=== PATIENT | male | born 1950 ===

== ENCOUNTER 2021-09-22 13:01 | Inpatient (IN) | payer MEDICARE, OTHER ==
[~2021-09-22] VITALS: Ht 170.2 cm; Wt 73.0 kg
[2021-09-22] MEDS ORDERED: AZITHROMYCIN 500MG/ 250ML 250 ML IV ONE (14:00)
[2021-09-22] MEDS ORDERED: DexAMETHasone SOD PHOS 10MG/1ML VIAL INJ IV ONE (14:00)
[2021-09-22 14:01] LABS: Basophils # (auto) 0 10 ^3/uL (0-0.2); Basophils % (auto) 0.2 % (0.0-2.0); Eosinophils # (auto) 0 10 ^3/uL (0-0.8); Eosinophils % (auto) 0.2 % (0.0-7.0); Hematocrit 43.3 % (41.0-53.0); Hemoglobin 14.7 g/dL (13.5-17.5); Lymphocytes # (auto) 0.6 10 ^3/uL (0.4-5.4); Lymphocytes % (auto) 8.7 % (10.0-50.0); Mean Corpuscular Hemoglobin 30.6 pg (28.0-32.0); Mean Corpuscular Hgb Conc. 33.9 g/dL (32.0-36.0); Mean Corpuscular Volume 90.3 fL (80.0-100.0); Monocytes # (auto) 0.2 10 ^3/uL (0-1.3); Monocytes % (auto) 3.2 % (0.0-12.0); Neutrophils # (auto) 5.9 10 ^3/uL (1.6-8.6); Neutrophils % (auto) 87.7 % (37.0-80.0); Nucleated Red Blood Cells % 0.2 %; Red Blood Cells 4.79 10^6/uL (4.5-5.90); Red Cell Distribution Width 13.3 % (11.8-14.3); White Blood Cell 6.8 10^3/uL (4.4-10.8)
[2021-09-22 14:10] VITALS: BP 151/89
[2021-09-22 14:18] LABS: Albumin 2.4 g/dL (3.4-5.0); Calcium 8.9 mg/dL (8.5-10.1); Magnesium 2.8 mg/dL (1.6-2.6); Potassium 3.7 mmol/L (3.5-5.1)
[2021-09-22 14:28] LABS: BUN/Creatinine Ratio 36.2; Bilirubin, Total 0.8 mg/dL (0.2-1.0); CRP High Sensitivity 11.4 mg/dL (< 0.3); Total Protein 7.4 g/dL (6.4-8.2)
[2021-09-22] MEDS ORDERED: MORPHINE SULFATE INJECTION 2 MG/ML SYRG IV PRN ×3 (16:30→16:45)
[2021-09-22] MEDS ORDERED: NITROGLYCERIN 0.4 MG SL TAB SL PRN ×2 (16:30→16:45)
[2021-09-22] MEDS ORDERED: REMDESIVIR PER PHARMACY 0 ML IV SCH (16:45)
[2021-09-22] MEDS ORDERED: ACETAMINOPHEN 500 MG TAB PO PRN (16:45)
[2021-09-22] MEDS ORDERED: DOCUSATE SOD 100 MG CAP PO PRN (16:45)
[2021-09-22] MEDS ORDERED: ALUM & MAG HYDROX-SIMETH LIQ(MAALOX) 30 ML PO PRN (16:45)
[2021-09-22] MEDS ORDERED: ONDANSETRON HCL 4 MG/2 ML VIAL IV PRN (16:45)
[2021-09-22] MEDS ORDERED: ENOXAPARIN SOD 100 MG/1 ML SYRINGE SC ONE (16:45)
[2021-09-22] MEDS ORDERED: ALBUMIN 25% 100 ML IV SCH ×2 (17:00→18:00)
[2021-09-22] MEDS ORDERED: ALBUMIN 25% 100 ML IV ONE (17:00)
[2021-09-22] MEDS ORDERED: hydrALAZINE HCL 20 MG/ML VL IV PRN (17:00)
[2021-09-22] MEDS ORDERED: FAMOTIDINE (10MG/ML) 2ML VL IV ONE (17:00)
[2021-09-22] MEDS ORDERED: IOHEXOL 350 MG/ML 100ML IJ ONE (17:42)
[2021-09-22] MEDS: FUROSEMIDE 20 MG/2 ML VIAL IV SCH (18:25)
[2021-09-22 20:00] VITALS: BP 121/78
[2021-09-22] MEDS ORDERED: REMDESIVIR 200 MG in NS 210ml LOADING DOSE ADULT IV ONE (20:00)
[2021-09-22 20:06] VITALS: BP 121/78
[2021-09-22 20:21] VITALS: BP 138/76
[2021-09-22 21:06] VITALS: BP 128/75
[2021-09-22] MEDS ORDERED: METO25TA5 PO (21:20)
[2021-09-22] MEDS ORDERED: HYDR-4623 PO (21:20)
[2021-09-22] MEDS ORDERED: LISI-716 PO (21:20)
[2021-09-22] MEDS ORDERED: ASPI-543 PO (21:20)
[2021-09-22 22:00] VITALS: BP 128/75
[2021-09-22] MEDS: BUDESONIDE (INHALATION) 180 MCG IH IN SCH (22:00)
[2021-09-22] MEDS: POTASSIUM CHL 20 Meq TABLET PO SCH (22:13)
[2021-09-22] MEDS: ATORVASTATIN 20 MG TAB PO SCH (22:14)
[2021-09-22] MEDS: CARVEDILOL 3.125 MG TAB PO SCH (22:14)
[2021-09-22] MEDS: FAMOTIDINE (10MG/ML) 2ML VL IV SCH (22:15)
[2021-09-22] MEDS: DOXYCYCLINE 100MG/250ML 250 ML IV SCH (22:15)
[2021-09-22] MEDS: ENOXAPARIN SOD 80 MG/0.8ML SYRINGE SC SCH (22:15)
[2021-09-23 01:10] LABS: Urine Bacteria NONE SEEN /hpf (None Seen); Urine Blood 2+ /uL (Negative); Urine Specific Gravity 1.049 (1.001-1.035); Urine WBC 2 /hpf (0 - 3)
[2021-09-23 01:12] LABS: Alcohol, Urine < 3.0 mg/dL (0-10); Amphetamine Screen, Urine NEGATIVE (NEGATIVE); Barbiturate Scree,Urine NEGATIVE (NEGATIVE); Benzodiazephine Screen, Urine NEGATIVE (NEGATIVE); Cannabinoid Screen, Urine NEGATIVE (NEGATIVE); Cocaine Screen, Urine NEGATIVE (NEGATIVE); Opiate Scree,Urine POSITIVE (NEGATIVE); Phencyclidine Screen, Urine NEGATIVE (NEGATIVE)
[2021-09-23 05:00] VITALS: BP 119/76
[2021-09-23] MEDS: FUROSEMIDE 20 MG/2 ML VIAL IV SCH ×2 (06:26→16:33)
[2021-09-23] MEDS: ALBUTEROL SULF HFA 90MCG INH 200DOSE IN PRN ×2 (06:50→20:01)
[2021-09-23] MEDS: BUDESONIDE (INHALATION) 180 MCG IH IN SCH ×3 (06:50→20:01)
[2021-09-23 07:13] LABS: Basophils # (auto) 0 10 ^3/uL (0-0.2); Basophils % (auto) 0.1 % (0.0-2.0); Eosinophils # (auto) 0 10 ^3/uL (0-0.8); Hematocrit 42.2 % (41.0-53.0); Hemoglobin 14.7 g/dL (13.5-17.5); Lymphocytes # (auto) 0.7 10 ^3/uL (0.4-5.4); Lymphocytes % (auto) 11.3 % (10.0-50.0); Mean Corpuscular Hgb Conc. 34.9 g/dL (32.0-36.0); Mean Corpuscular Volume 88.7 fL (80.0-100.0); Monocytes # (auto) 0.2 10 ^3/uL (0-1.3); Monocytes % (auto) 3.8 % (0.0-12.0); Neutrophils # (auto) 4.9 10 ^3/uL (1.6-8.6); Neutrophils % (auto) 84.8 % (37.0-80.0); Nucleated Red Blood Cells % 0.2 %; Red Blood Cells 4.75 10^6/uL (4.5-5.90); Red Cell Distribution Width 13.2 % (11.8-14.3); White Blood Cell 5.8 10^3/uL (4.4-10.8)
[2021-09-23 07:14] LABS: INR 1.06 (0.9-1.15); Partial Thromboplastin Time 34.1 sec (23.6-33.0)
[2021-09-23 07:16] LABS: Magnesium 2.1 mg/dL (1.6-2.6); Potassium 4.4 mmol/L (3.5-5.1)
[2021-09-23 07:22] LABS: Albumin 2.5 g/dL (3.4-5.0); BUN/Creatinine Ratio 36.2; Bilirubin, Total 0.8 mg/dL (0.2-1.0); Total Protein 6.7 g/dL (6.4-8.2); Uric Acid 5.1 mg/dL (3.5-7.2)
[2021-09-23 09:00] VITALS: BP 106/51
[2021-09-23] MEDS: FAMOTIDINE (10MG/ML) 2ML VL IV SCH (09:52)
[2021-09-23] MEDS: DexAMETHasone SOD PHOS 10MG/1ML VIAL INJ IV SCH (09:52)
[2021-09-23] MEDS: ASPirin 81 mg TAB PO SCH (09:53)
[2021-09-23] MEDS: DOXYCYCLINE 100MG/250ML 250 ML IV SCH ×2 (09:53→21:54)
[2021-09-23] MEDS: CARVEDILOL 3.125 MG TAB PO SCH ×2 (09:54→22:08)
[2021-09-23] MEDS: POTASSIUM CHL 20 Meq TABLET PO SCH ×2 (09:54→22:08)
[2021-09-23] MEDS: LISINOPRIL 5 MG TAB PO SCH (09:55)
[2021-09-23] MEDS: ASCORBIC ACID 1,000 MG TAB PO SCH (09:55)
[2021-09-23] MEDS: CHOLECALCIFEROL (VITD3) 2,000 UNIT CAP/TAB PO SCH (09:55)
[2021-09-23] MEDS: ENOXAPARIN SOD 80 MG/0.8ML SYRINGE SC SCH (09:56)
[2021-09-23] MEDS ORDERED: IVERMECTIN 3 MG TAB PO SCH (10:00)
[2021-09-23 12:59] VITALS: BP 107/62
[2021-09-23] MEDS: REMDESIVIR 100mg 100 MG in SODIUM CHL 0.9% 230 ML IV SCH (14:00)
[2021-09-23 16:38] VITALS: BP 104/54
[2021-09-23 22:00] VITALS: BP 110/65
[2021-09-23] MEDS: ATORVASTATIN 20 MG TAB PO SCH (22:08)
[2021-09-23] MEDS: HYDROcodone-ACET 5/325MG TAB PO PRN (22:09)
[2021-09-23] MEDS: ENOXAPARIN SOD 40 MG/0.4 ML SYRINGE SC SCH (22:09)
[2021-09-23] MEDS: LORazepam 0.5 MG TAB PO PRN (22:09)
[2021-09-24 05:00] VITALS: BP 120/74
[2021-09-24] MEDS: FUROSEMIDE 20 MG/2 ML VIAL IV SCH (05:43)
[2021-09-24] MEDS: HYDROcodone-ACET 5/325MG TAB PO PRN ×3 (05:44→21:49)
[2021-09-24] MEDS: ALBUTEROL SULF HFA 90MCG INH 200DOSE IN PRN ×2 (06:08→20:48)
[2021-09-24] MEDS: BUDESONIDE (INHALATION) 180 MCG IH IN SCH ×2 (06:08→20:48)
[2021-09-24] MEDS: DOXYCYCLINE 100MG/250ML 250 ML IV SCH ×2 (09:04→21:47)
[2021-09-24] MEDS: DexAMETHasone SOD PHOS 10MG/1ML VIAL INJ IV SCH (09:04)
[2021-09-24] MEDS: CARVEDILOL 3.125 MG TAB PO SCH ×2 (09:05→21:48)
[2021-09-24] MEDS: ASPirin 81 mg TAB PO SCH (09:05)
[2021-09-24] MEDS: POTASSIUM CHL 20 Meq TABLET PO SCH ×2 (09:06→21:47)
[2021-09-24] MEDS: ASCORBIC ACID 1,000 MG TAB PO SCH (09:06)
[2021-09-24] MEDS: FAMOTIDINE 20 MG TAB PO SCH (09:06)
[2021-09-24] MEDS: ENOXAPARIN SOD 40 MG/0.4 ML SYRINGE SC SCH ×2 (09:07→21:47)
[2021-09-24] MEDS: CHOLECALCIFEROL (VITD3) 2,000 UNIT CAP/TAB PO SCH (09:07)
[2021-09-24] MEDS: LISINOPRIL 5 MG TAB PO SCH (09:07)
[2021-09-24] MEDS: LORazepam 0.5 MG TAB PO PRN (09:37)
[2021-09-24 10:08] VITALS: BP 98/56
[2021-09-24 12:15] LABS: Albumin 2.4 g/dL (3.4-5.0); Potassium 4.6 mmol/L (3.5-5.1)
[2021-09-24 12:46] LABS: BUN/Creatinine Ratio 40.2; Bilirubin, Total 0.7 mg/dL (0.2-1.0); Calcium 9.3 mg/dL (8.5-10.1); Total Protein 6.8 g/dL (6.4-8.2)
[2021-09-24 13:30] VITALS: BP 91/50
[2021-09-24] MEDS: REMDESIVIR 100mg 100 MG in SODIUM CHL 0.9% 230 ML IV SCH (14:28)
[2021-09-24] MEDS: ERGOCALCIFEROL 50,000 UNIT(1.25MG) CAP PO SCH (16:12)
[2021-09-24 17:00] VITALS: BP 122/62
[2021-09-24] MEDS: ATORVASTATIN 20 MG TAB PO SCH (21:47)
[2021-09-24 22:00] VITALS: BP 104/70
[2021-09-25] MEDS: HYDROcodone-ACET 5/325MG TAB PO PRN ×4 (06:01→21:53)
[2021-09-25 06:29] VITALS: BP 100/62
[2021-09-25] MEDS: ALBUTEROL SULF HFA 90MCG INH 200DOSE IN PRN ×2 (07:12→20:20)
[2021-09-25] MEDS: BUDESONIDE (INHALATION) 180 MCG IH IN SCH ×2 (07:12→20:20)
[2021-09-25 08:14] LABS: Potassium 4.8 mmol/L (3.5-5.1)
[2021-09-25] MEDS: FUROSEMIDE 20 MG/2 ML VIAL IV SCH (08:21)
[2021-09-25] MEDS: DexAMETHasone SOD PHOS 10MG/1ML VIAL INJ IV SCH (08:21)
[2021-09-25] MEDS: DOXYCYCLINE 100MG/250ML 250 ML IV SCH ×2 (08:21→21:51)
[2021-09-25 08:22] LABS: Albumin 2.4 g/dL (3.4-5.0); BUN/Creatinine Ratio 49.5; Bilirubin, Total 0.8 mg/dL (0.2-1.0); Calcium 9.1 mg/dL (8.5-10.1); Total Protein 6.7 g/dL (6.4-8.2)
[2021-09-25] MEDS: ASPirin 81 mg TAB PO SCH (08:22)
[2021-09-25] MEDS: CARVEDILOL 3.125 MG TAB PO SCH ×2 (08:22→21:52)
[2021-09-25] MEDS: ASCORBIC ACID 1,000 MG TAB PO SCH (08:23)
[2021-09-25] MEDS: CHOLECALCIFEROL (VITD3) 2,000 UNIT CAP/TAB PO SCH (08:23)
[2021-09-25] MEDS: POTASSIUM CHL 20 Meq TABLET PO SCH ×2 (08:23→21:52)
[2021-09-25] MEDS: FAMOTIDINE 20 MG TAB PO SCH (08:23)
[2021-09-25] MEDS: LISINOPRIL 5 MG TAB PO SCH (08:24)
[2021-09-25] MEDS: ENOXAPARIN SOD 40 MG/0.4 ML SYRINGE SC SCH ×2 (08:24→21:52)
[2021-09-25 09:00] VITALS: BP 109/71
[2021-09-25 12:41] VITALS: BP 93/56
[2021-09-25] MEDS: REMDESIVIR 100mg 100 MG in SODIUM CHL 0.9% 230 ML IV SCH (15:19)
[2021-09-25 17:00] VITALS: BP 102/68
[2021-09-25] MEDS: LORazepam 0.5 MG TAB PO PRN (17:32)
[2021-09-25 21:21] VITALS: BP 116/72
[2021-09-25] MEDS: ATORVASTATIN 20 MG TAB PO SCH (21:52)
[2021-09-26] VITALS (11 sets, daily range): BP systolic 78–110; BP diastolic 34–68
[2021-09-26] MEDS: HYDROcodone-ACET 5/325MG TAB PO PRN ×5 (03:40→23:10)
[2021-09-26 07:18] LABS: Basophils # (auto) 0 10 ^3/uL (0-0.2); Basophils % (auto) 0.1 % (0.0-2.0); Eosinophils # (auto) 0.1 10 ^3/uL (0-0.8); Eosinophils % (auto) 0.8 % (0.0-7.0); Hematocrit 44.6 % (41.0-53.0); Hemoglobin 15.2 g/dL (13.5-17.5); Lymphocytes # (auto) 0.8 10 ^3/uL (0.4-5.4); Lymphocytes % (auto) 10.1 % (10.0-50.0); Mean Corpuscular Hemoglobin 30.7 pg (28.0-32.0); Mean Corpuscular Hgb Conc. 34.1 g/dL (32.0-36.0); Mean Corpuscular Volume 90.3 fL (80.0-100.0); Monocytes # (auto) 0.2 10 ^3/uL (0-1.3); Monocytes % (auto) 2.3 % (0.0-12.0); Neutrophils # (auto) 6.4 10 ^3/uL (1.6-8.6); Neutrophils % (auto) 86.7 % (37.0-80.0); Nucleated Red Blood Cells % 0.2 %; Red Blood Cells 4.94 10^6/uL (4.5-5.90); Red Cell Distribution Width 13.2 % (11.8-14.3); White Blood Cell 7.4 10^3/uL (4.4-10.8)
[2021-09-26 07:28] LABS: Potassium 4.9 mmol/L (3.5-5.1)
[2021-09-26 07:36] LABS: Albumin 2.4 g/dL (3.4-5.0); Bilirubin, Total 0.9 mg/dL (0.2-1.0); Calcium 8.9 mg/dL (8.5-10.1); Total Protein 6.5 g/dL (6.4-8.2)
[2021-09-26] MEDS: ALBUTEROL SULF HFA 90MCG INH 200DOSE IN PRN (08:57)
[2021-09-26] MEDS: BUDESONIDE (INHALATION) 180 MCG IH IN SCH ×2 (08:57→22:00)
[2021-09-26] MEDS: FUROSEMIDE 20 MG/2 ML VIAL IV SCH ×2 (10:00→10:29)
[2021-09-26] MEDS: POTASSIUM CHL 20 Meq TABLET PO SCH ×3 (10:00→21:50)
[2021-09-26] MEDS: ASCORBIC ACID 1,000 MG TAB PO SCH ×2 (10:00→10:31)
[2021-09-26] MEDS: DexAMETHasone SOD PHOS 10MG/1ML VIAL INJ IV SCH (10:29)
[2021-09-26] MEDS: ASPirin 81 mg TAB PO SCH (10:29)
[2021-09-26] MEDS: FAMOTIDINE 20 MG TAB PO SCH (10:30)
[2021-09-26] MEDS: CARVEDILOL 3.125 MG TAB PO SCH (10:30)
[2021-09-26] MEDS: CHOLECALCIFEROL (VITD3) 2,000 UNIT CAP/TAB PO SCH (10:31)
[2021-09-26] MEDS: LISINOPRIL 5 MG TAB PO SCH (10:31)
[2021-09-26] MEDS: ENOXAPARIN SOD 40 MG/0.4 ML SYRINGE SC SCH ×2 (10:32→21:50)
[2021-09-26] MEDS: levoFLOXacin 500MG 100 ML IV SCH ×2 (10:33→12:41)
[2021-09-26] MEDS: DOXYCYCLINE 100MG/250ML 250 ML IV SCH ×3 (10:33→21:50)
[2021-09-26] MEDS: REMDESIVIR 100mg 100 MG in SODIUM CHL 0.9% 230 ML IV SCH (16:07)
[2021-09-26] MEDS: ATORVASTATIN 20 MG TAB PO SCH (21:50)
[2021-09-27 05:08] VITALS: BP 121/64
[2021-09-27] MEDS: ALBUTEROL SULF HFA 90MCG INH 200DOSE IN PRN ×2 (06:16→21:21)
[2021-09-27] MEDS: BUDESONIDE (INHALATION) 180 MCG IH IN SCH ×2 (06:16→21:21)
[2021-09-27] MEDS: HYDROcodone-ACET 5/325MG TAB PO PRN ×4 (06:49→22:27)
[2021-09-27 07:27] LABS: Basophils # (auto) 0 10 ^3/uL (0-0.2); Basophils % (auto) 0.1 % (0.0-2.0); Eosinophils # (auto) 0.1 10 ^3/uL (0-0.8); Eosinophils % (auto) 0.8 % (0.0-7.0); Hematocrit 43.7 % (41.0-53.0); Hemoglobin 15.3 g/dL (13.5-17.5); Lymphocytes # (auto) 0.9 10 ^3/uL (0.4-5.4); Lymphocytes % (auto) 10.8 % (10.0-50.0); Mean Corpuscular Hemoglobin 31.4 pg (28.0-32.0); Mean Corpuscular Hgb Conc. 35.1 g/dL (32.0-36.0); Mean Corpuscular Volume 89.5 fL (80.0-100.0); Monocytes # (auto) 0.3 10 ^3/uL (0-1.3); Monocytes % (auto) 3.4 % (0.0-12.0); Neutrophils # (auto) 7.1 10 ^3/uL (1.6-8.6); Neutrophils % (auto) 84.9 % (37.0-80.0); Nucleated Red Blood Cells % 0.1 %; Red Blood Cells 4.89 10^6/uL (4.5-5.90); Red Cell Distribution Width 12.8 % (11.8-14.3); White Blood Cell 8.4 10^3/uL (4.4-10.8)
[2021-09-27 07:39] LABS: BUN/Creatinine Ratio 57.5; Calcium 8.9 mg/dL (8.5-10.1); Potassium 5.2 mmol/L (3.5-5.1)
[2021-09-27 09:00] VITALS: BP 115/63
[2021-09-27] MEDS: DexAMETHasone SOD PHOS 10MG/1ML VIAL INJ IV SCH (09:56)
[2021-09-27] MEDS: DOXYCYCLINE 100MG/250ML 250 ML IV SCH (09:57)
[2021-09-27] MEDS: levoFLOXacin 500MG 100 ML IV SCH (09:57)
[2021-09-27] MEDS: FUROSEMIDE 20 MG/2 ML VIAL IV SCH (09:57)
[2021-09-27] MEDS: ENOXAPARIN SOD 40 MG/0.4 ML SYRINGE SC SCH ×2 (09:58→22:18)
[2021-09-27] MEDS: CHOLECALCIFEROL (VITD3) 2,000 UNIT CAP/TAB PO SCH (09:58)
[2021-09-27] MEDS: FAMOTIDINE 20 MG TAB PO SCH (09:58)
[2021-09-27] MEDS: ASCORBIC ACID 1,000 MG TAB PO SCH (09:58)
[2021-09-27] MEDS: ASPirin 81 mg TAB PO SCH (09:58)
[2021-09-27 12:44] VITALS: BP 109/69
[2021-09-27 17:00] VITALS: BP 100/64
[2021-09-27 22:00] VITALS: BP 107/68
[2021-09-27] MEDS: ATORVASTATIN 20 MG TAB PO SCH (22:17)
[2021-09-28] MEDS: HYDROcodone-ACET 5/325MG TAB PO PRN ×4 (03:50→23:22)
[2021-09-28 05:00] VITALS: BP 101/60
[2021-09-28] MEDS: ALBUTEROL SULF HFA 90MCG INH 200DOSE IN PRN ×2 (06:46→21:19)
[2021-09-28] MEDS: BUDESONIDE (INHALATION) 180 MCG IH IN SCH ×2 (06:47→19:20)
[2021-09-28 08:00] VITALS: BP 113/68
[2021-09-28] MEDS: CHOLECALCIFEROL (VITD3) 2,000 UNIT CAP/TAB PO SCH (10:48)
[2021-09-28] MEDS: FAMOTIDINE 20 MG TAB PO SCH (10:48)
[2021-09-28] MEDS: ENOXAPARIN SOD 40 MG/0.4 ML SYRINGE SC SCH ×2 (10:48→23:21)
[2021-09-28] MEDS: ASCORBIC ACID 1,000 MG TAB PO SCH (10:48)
[2021-09-28] MEDS: ASPirin 81 mg TAB PO SCH (10:48)
[2021-09-28] MEDS: DexAMETHasone SOD PHOS 10MG/1ML VIAL INJ IV SCH (10:49)
[2021-09-28] MEDS: AMOXICILLIN/CLAVUL 875 MG TAB PO SCH ×2 (10:53→23:21)
[2021-09-28 12:00] VITALS: BP 113/66
[2021-09-28 16:00] VITALS: BP 125/81
[2021-09-28 22:00] VITALS: BP 92/56
[2021-09-28 22:58] VITALS: BP 92/56
[2021-09-28] MEDS: ATORVASTATIN 20 MG TAB PO SCH (23:21)
[2021-09-29 05:00] VITALS: BP 112/70
[2021-09-29 06:19] LABS: Potassium 4.6 mmol/L (3.5-5.1)
[2021-09-29 06:28] LABS: Calcium 9.6 mg/dL (8.5-10.1)
[2021-09-29] MEDS: ALBUTEROL SULF HFA 90MCG INH 200DOSE IN PRN ×2 (07:09→19:51)
[2021-09-29] MEDS: BUDESONIDE (INHALATION) 180 MCG IH IN SCH ×2 (07:09→19:50)
[2021-09-29 09:00] VITALS: BP 98/57
[2021-09-29] MEDS: AMOXICILLIN/CLAVUL 875 MG TAB PO SCH ×2 (10:00→22:00)
[2021-09-29] MEDS: ASCORBIC ACID 1,000 MG TAB PO SCH (10:12)
[2021-09-29] MEDS: FAMOTIDINE 20 MG TAB PO SCH (10:12)
[2021-09-29] MEDS: CHOLECALCIFEROL (VITD3) 2,000 UNIT CAP/TAB PO SCH (10:12)
[2021-09-29] MEDS: ASPirin 81 mg TAB PO SCH (10:12)
[2021-09-29] MEDS: DexAMETHasone SOD PHOS 10MG/1ML VIAL INJ IV SCH (10:12)
[2021-09-29] MEDS: ENOXAPARIN SOD 40 MG/0.4 ML SYRINGE SC SCH ×2 (10:13→22:06)
[2021-09-29] MEDS ORDERED: DEXTROSE (50%) 50ML SYRG IV SCH (12:00)
[2021-09-29 13:00] VITALS: BP 103/62
[2021-09-29] MEDS: HYDROcodone-ACET 5/325MG TAB PO PRN ×2 (15:24→22:06)
[2021-09-29 16:59] VITALS: BP 104/72
[2021-09-29] MEDS ORDERED: DOCUSATE SOD 100 MG CAP PO ONE (17:45)
[2021-09-29] MEDS ORDERED: PPN PER PHARMACY 0 ML IV SCH (17:45)
[2021-09-29] MEDS ORDERED: LACTULOSE 20Gm/30ML SOLN PO ONE (17:45)
[2021-09-29] MEDS: ACCU-CHEK COMFORT CURVE STRIP VI SCH ×2 (18:00→23:34)
[2021-09-29] MEDS: InsuLIN REG 1unit/0.01ml Soln (100units/ml) SC SCH ×2 (18:00→23:34)
[2021-09-29] MEDS ORDERED: AMINO ACID INFUSION IN D10W 1,000 ML IV NR (20:00)
[2021-09-29 21:18] VITALS: BP 116/78
[2021-09-29] MEDS: ATORVASTATIN 20 MG TAB PO SCH (22:00)
[2021-09-29] MEDS: LACTULOSE 20Gm/30ML SOLN PO SCH (23:27)
[2021-09-30 05:37] VITALS: BP 110/72
[2021-09-30] MEDS: ACCU-CHEK COMFORT CURVE STRIP VI SCH ×3 (05:58→17:37)
[2021-09-30] MEDS: LACTULOSE 20Gm/30ML SOLN PO SCH ×2 (05:58→11:55)
[2021-09-30] MEDS: InsuLIN REG 1unit/0.01ml Soln (100units/ml) SC SCH ×3 (05:59→17:37)
[2021-09-30 06:18] LABS: Albumin 2.2 g/dL (3.4-5.0); Potassium 4.2 mmol/L (3.5-5.1)
[2021-09-30 06:24] LABS: BUN/Creatinine Ratio 48.5; Bilirubin, Total 0.7 mg/dL (0.2-1.0); Magnesium 2.8 mg/dL (1.6-2.6); Pre Albumin 18.2 mg/dL (20.0-40.0); Total Protein 6.5 g/dL (6.4-8.2)
[2021-09-30] MEDS: ALBUTEROL SULF HFA 90MCG INH 200DOSE IN PRN ×2 (07:23→21:35)
[2021-09-30] MEDS: BUDESONIDE (INHALATION) 180 MCG IH IN SCH ×2 (07:23→21:35)
[2021-09-30 08:00] VITALS: BP 115/63
[2021-09-30 09:00] VITALS: BP 112/75
[2021-09-30] MEDS: DOCUSATE SOD 100 MG CAP PO SCH ×2 (10:00→21:24)
[2021-09-30] MEDS: AMOXICILLIN/CLAVUL 875 MG TAB PO SCH ×2 (10:00→21:24)
[2021-09-30] MEDS: ASCORBIC ACID 1,000 MG TAB PO SCH (10:00)
[2021-09-30] MEDS: HYDROcodone-ACET 5/325MG TAB PO PRN ×2 (11:20→18:53)
[2021-09-30] MEDS: DexAMETHasone SOD PHOS 10MG/1ML VIAL INJ IV SCH (11:53)
[2021-09-30] MEDS: ASPirin 81 mg TAB PO SCH (11:54)
[2021-09-30] MEDS: FAMOTIDINE 20 MG TAB PO SCH (11:55)
[2021-09-30] MEDS: ENOXAPARIN SOD 40 MG/0.4 ML SYRINGE SC SCH ×2 (11:55→22:19)
[2021-09-30] MEDS: CHOLECALCIFEROL (VITD3) 2,000 UNIT CAP/TAB PO SCH (11:55)
[2021-09-30 13:00] VITALS: BP 96/55
[2021-09-30 17:00] VITALS: BP 101/69
[2021-09-30] MEDS ORDERED: PPN PER PHARMACY IV NR ×6 (20:00)
[2021-09-30 22:00] VITALS: BP 111/66
[2021-09-30] MEDS: ATORVASTATIN 20 MG TAB PO SCH (22:00)
[2021-10-01] MEDS: ACCU-CHEK COMFORT CURVE STRIP VI SCH ×4 (00:07→16:39)
[2021-10-01] MEDS: InsuLIN REG 1unit/0.01ml Soln (100units/ml) SC SCH ×4 (00:09→16:38)
[2021-10-01] MEDS: HYDROcodone-ACET 5/325MG TAB PO PRN ×4 (00:30→21:03)
[2021-10-01 05:00] VITALS: BP 109/71
[2021-10-01] MEDS: ALBUTEROL SULF HFA 90MCG INH 200DOSE IN PRN ×2 (05:51→20:35)
[2021-10-01] MEDS: BUDESONIDE (INHALATION) 180 MCG IH IN SCH ×2 (05:51→20:35)
[2021-10-01 06:12] LABS: Potassium 4.1 mmol/L (3.5-5.1)
[2021-10-01 06:18] LABS: Albumin 2.2 g/dL (3.4-5.0); BUN/Creatinine Ratio 55.1; Bilirubin, Total 0.7 mg/dL (0.2-1.0); Calcium 8.9 mg/dL (8.5-10.1); Magnesium 2.5 mg/dL (1.6-2.6); Phosphorus 2.5 mg/dL (2.5-4.90); Total Protein 6.4 g/dL (6.4-8.2)
[2021-10-01 08:00] VITALS: BP 129/77
[2021-10-01] MEDS: ASPirin 81 mg TAB PO SCH (08:05)
[2021-10-01] MEDS: FAMOTIDINE 20 MG TAB PO SCH (08:05)
[2021-10-01] MEDS: DexAMETHasone SOD PHOS 10MG/1ML VIAL INJ IV SCH (08:05)
[2021-10-01] MEDS: ASCORBIC ACID 1,000 MG TAB PO SCH (08:06)
[2021-10-01] MEDS: CHOLECALCIFEROL (VITD3) 2,000 UNIT CAP/TAB PO SCH (08:06)
[2021-10-01] MEDS: ENOXAPARIN SOD 40 MG/0.4 ML SYRINGE SC SCH ×2 (08:07→21:02)
[2021-10-01] MEDS: DOCUSATE SOD 100 MG CAP PO SCH ×2 (08:09→21:03)
[2021-10-01 09:00] VITALS: BP 77/71
[2021-10-01] MEDS: AMOXICILLIN/CLAVUL 875 MG TAB PO SCH ×2 (10:07→21:03)
[2021-10-01 12:45] VITALS: BP 111/72
[2021-10-01] MEDS ORDERED: LACTULOSE 20Gm/30ML SOLN PO PRN (13:42)
[2021-10-01] MEDS: ERGOCALCIFEROL 50,000 UNIT(1.25MG) CAP PO SCH (16:40)
[2021-10-01 17:00] VITALS: BP 110/77
[2021-10-01] MEDS ORDERED: PPN PER PHARMACY IV NR ×7 (20:00)
[2021-10-01 21:00] VITALS: BP 115/77
[2021-10-01] MEDS: ATORVASTATIN 20 MG TAB PO SCH (21:02)
[2021-10-02] VITALS (70 sets, daily range): BP systolic 74–152; BP diastolic 50–92
[2021-10-02] MEDS: ACCU-CHEK COMFORT CURVE STRIP VI SCH ×4 (00:11→17:34)
[2021-10-02] MEDS: InsuLIN REG 1unit/0.01ml Soln (100units/ml) SC SCH ×4 (00:11→17:34)
[2021-10-02] MEDS: LORazepam 0.5 MG TAB PO PRN (00:12)
[2021-10-02] MEDS: HYDROcodone-ACET 5/325MG TAB PO PRN ×2 (01:35→06:08)
[2021-10-02] MEDS: BUDESONIDE (INHALATION) 180 MCG IH IN SCH (06:41)
[2021-10-02] MEDS: ALBUTEROL SULF HFA 90MCG INH 200DOSE IN PRN (06:41)
[2021-10-02] MEDS ORDERED: SUCCINYLCHOLINE CHLORIDE 20 MG/ML 10ML VIAL IV ONE (07:42)
[2021-10-02] MEDS ORDERED: ETOMIDATE (2MG/ML) 20ML VIAL IV ONE (07:42)
[2021-10-02] MEDS: fentaNYL Drip 2500mCg/250mlNS 250 ML IV SCH ×2 (07:45→17:14)
[2021-10-02] MEDS: MIDAZOLAM DRIP 50 mg/50mL 50 ML IV SCH ×4 (07:45→22:15)
[2021-10-02] MEDS: PROPOFOL 100 ML IV SCH ×4 (08:15→22:16)
[2021-10-02] MEDS: NOREPINEPHRINE 8 MG/250ML KIT 250 ML IV SCH ×3 (08:15→22:14)
[2021-10-02] MEDS: DOCUSATE SOD 100 MG CAP PO SCH ×2 (09:21→22:00)
[2021-10-02] MEDS: ASPirin 81 mg TAB PO SCH (09:42)
[2021-10-02] MEDS: DexAMETHasone SOD PHOS 10MG/1ML VIAL INJ IV SCH (09:42)
[2021-10-02] MEDS: CHOLECALCIFEROL (VITD3) 2,000 UNIT CAP/TAB PO SCH (09:43)
[2021-10-02] MEDS: ENOXAPARIN SOD 40 MG/0.4 ML SYRINGE SC SCH ×2 (09:43→22:13)
[2021-10-02] MEDS: FAMOTIDINE 20 MG TAB PO SCH (09:43)
[2021-10-02] MEDS: AMOXICILLIN/CLAVUL 875 MG TAB PO SCH (09:44)
[2021-10-02] MEDS: ASCORBIC ACID 1,000 MG TAB PO SCH (09:44)
[2021-10-02 10:04] LABS: Albumin 2.2 g/dL (3.4-5.0); Calcium 9.1 mg/dL (8.5-10.1); Magnesium 2.5 mg/dL (1.6-2.6)
[2021-10-02 10:06] LABS: Mean Corpuscular Hgb Conc. 34.6 g/dL (32.0-36.0)
[2021-10-02 10:09] LABS: Hematocrit 48.6 % (41.0-53.0); Hemoglobin 16.8 g/dL (13.5-17.5); Mean Corpuscular Hemoglobin 30.7 pg (28.0-32.0); Mean Corpuscular Volume 88.8 fL (80.0-100.0); Red Blood Cells 5.48 10^6/uL (4.5-5.90)
[2021-10-02 10:10] LABS: BUN/Creatinine Ratio 43.3; Bilirubin, Total 0.8 mg/dL (0.2-1.0); Phosphorus 3.4 mg/dL (2.5-4.90); Total Protein 6.7 g/dL (6.4-8.2)
[2021-10-02 10:13] LABS: INR 1.38 (0.9-1.15); Partial Thromboplastin Time 31.4 sec (23.6-33.0)
[2021-10-02 10:20] LABS: White Blood Cell 30.6 10^3/uL (4.4-10.8)
[2021-10-02 10:21] LABS: Basophils % (manual) 0 (0.0-2.0); Blast Cells 0; Eosinophils % (manual) 0 (0-7); Metamyelocytes % 0; Promyelocytes % 0; Reactive Lymphocytes 0
[2021-10-02 11:27] LABS: Band Neutrophils % (manual) 3; Lymphocytes % (manual) 3 (10.0-50.0); Monocytes % (manual) 6 (0-12); Myelocytes % 1
[2021-10-02] MEDS: PHENYLEPHRINE IV 250 ML IV SCH ×2 (12:08→19:47)
[2021-10-02] MEDS ORDERED: VANCOMYCIN PER PHARMACY 1,000 MG IV SCH (12:15)
[2021-10-02] MEDS: VANCOMYCIN 1GM/250ML 250 ML IV SCH (12:18)
[2021-10-02] MEDS ORDERED: TPN PER PHARMACY 0 ML IV SCH (13:00)
[2021-10-02] MEDS: PIPERACILLIN-TAZOB 3.375GM 100 ML IV SCH ×2 (13:27→22:12)
[2021-10-02] MEDS: BUDESONIDE (INHALATION) 0.5 MG/2 ML NEB NEB SCH (18:59)
[2021-10-02] MEDS: ALBUTEROL SULF 2.5 MG/0.5ML(0.5%) NEB SOLN NEB PRN (18:59)
[2021-10-02] MEDS ORDERED: PPN PER PHARMACY IV NR ×7 (20:00)
[2021-10-02] MEDS: TPN PER PHARMACY IV NR ×7 (21:59)
[2021-10-02] MEDS: ATORVASTATIN 20 MG TAB PO SCH (22:13)
[2021-10-03] VITALS (103 sets, daily range): BP systolic 85–132; BP diastolic 45–71
[2021-10-03] MEDS: InsuLIN REG 1unit/0.01ml Soln (100units/ml) SC SCH ×4 (00:52→17:31)
[2021-10-03] MEDS: VANCOMYCIN 1GM/250ML 250 ML IV SCH (01:58)
[2021-10-03] MEDS: PROPOFOL 100 ML IV SCH ×4 (02:00→13:48)
[2021-10-03] MEDS: MIDAZOLAM DRIP 50 mg/50mL 50 ML IV SCH ×4 (02:00→13:48)
[2021-10-03] MEDS: PHENYLEPHRINE IV 250 ML IV SCH ×3 (02:30→20:05)
[2021-10-03] MEDS: PIPERACILLIN-TAZOB 3.375GM 100 ML IV SCH (03:00)
[2021-10-03] MEDS: NOREPINEPHRINE 8 MG/250ML KIT 250 ML IV SCH ×3 (03:30→18:47)
[2021-10-03 04:44] LABS: Basophils # (auto) 0 10 ^3/uL (0-0.2); Basophils % (auto) 0.1 % (0.0-2.0); Eosinophils # (auto) 0 10 ^3/uL (0-0.8); Hematocrit 42.5 % (41.0-53.0); Hemoglobin 13.8 g/dL (13.5-17.5); Lymphocytes % (auto) 4.2 % (10.0-50.0); Mean Corpuscular Hemoglobin 29.1 pg (28.0-32.0); Mean Corpuscular Hgb Conc. 32.5 g/dL (32.0-36.0); Mean Corpuscular Volume 89.6 fL (80.0-100.0); Monocytes # (auto) 1.2 10 ^3/uL (0-1.3); Monocytes % (auto) 5.1 % (0.0-12.0); Neutrophils # (auto) 21.2 10 ^3/uL (1.6-8.6); Neutrophils % (auto) 90.6 % (37.0-80.0); Red Blood Cells 4.74 10^6/uL (4.5-5.90); Red Cell Distribution Width 12.8 % (11.8-14.3); White Blood Cell 23.4 10^3/uL (4.4-10.8)
[2021-10-03] MEDS: fentaNYL Drip 2500mCg/250mlNS 250 ML IV SCH ×2 (05:00→17:57)
[2021-10-03 05:07] LABS: Albumin 1.7 g/dL (3.4-5.0); BUN/Creatinine Ratio 25.7; Calcium 8.6 mg/dL (8.5-10.1); Magnesium 2.2 mg/dL (1.6-2.6); Potassium 4.6 mmol/L (3.5-5.1)
[2021-10-03 05:11] LABS: Bilirubin, Total 0.4 mg/dL (0.2-1.0); Phosphorus 3.7 mg/dL (2.5-4.90); Total Protein 6.1 g/dL (6.4-8.2)
[2021-10-03] MEDS: ACCU-CHEK COMFORT CURVE STRIP VI SCH ×4 (05:29→17:31)
[2021-10-03] MEDS: BUDESONIDE (INHALATION) 0.5 MG/2 ML NEB NEB SCH ×2 (08:03→22:21)
[2021-10-03] MEDS: ALBUTEROL SULF 2.5 MG/0.5ML(0.5%) NEB SOLN NEB PRN ×2 (08:04→22:21)
[2021-10-03] MEDS: FAMOTIDINE 20 MG TAB PO SCH (09:43)
[2021-10-03] MEDS: DOCUSATE ORAL LIQUID 100 MG/10 ML UD GT SCH ×2 (09:43→22:23)
[2021-10-03] MEDS: ASPirin 81 mg TAB PO SCH (09:43)
[2021-10-03] MEDS: DexAMETHasone SOD PHOS 10MG/1ML VIAL INJ IV SCH (09:43)
[2021-10-03] MEDS: CHOLECALCIFEROL (VITD3) 2,000 UNIT CAP/TAB PO SCH (09:43)
[2021-10-03] MEDS: ENOXAPARIN SOD 40 MG/0.4 ML SYRINGE SC SCH ×2 (09:44→22:23)
[2021-10-03] MEDS: ASCORBIC ACID 1,000 MG TAB PO SCH (09:44)
[2021-10-03] MEDS: MEROPENEM 1GM IVPB 100 ML IV SCH (14:33)
[2021-10-03] MEDS ORDERED: Jevity 1.2 Cal/Fiber 1 Liter GT SCH (15:00)
[2021-10-03] MEDS: SODIUM CHLORIDE 0.9% 1,000 ML IV SCH (15:11)
[2021-10-03] MEDS ORDERED: HYDROCORTISONE SOD SUCC 100 MG/2ML INJ VIAL IV ONE (15:15)
[2021-10-03] MEDS: LINEZOLID 600MG/300ML 300 ML IV SCH (17:31)
[2021-10-03] MEDS: TPN PER PHARMACY IV NR ×7 (19:52)
[2021-10-03] MEDS ORDERED: TPN PER PHARMACY IV NR ×8 (20:00)
[2021-10-03] MEDS: HYDROCORTISONE SOD SUCC 100 MG/2ML INJ VIAL IV SCH (22:23)
[2021-10-04] VITALS (96 sets, daily range): BP systolic 86–169; BP diastolic 50–95
[2021-10-04] MEDS: InsuLIN REG 1unit/0.01ml Soln (100units/ml) SC SCH ×5 (00:21→23:53)
[2021-10-04] MEDS: ACCU-CHEK COMFORT CURVE STRIP VI SCH ×5 (00:22→23:54)
[2021-10-04] MEDS: MIDAZOLAM DRIP 50 mg/50mL 50 ML IV SCH ×3 (00:30→16:55)
[2021-10-04] MEDS: MEROPENEM 1GM IVPB 100 ML IV SCH ×2 (02:22→13:56)
[2021-10-04 04:36] LABS: Hematocrit 39.8 % (41.0-53.0); Hemoglobin 13.3 g/dL (13.5-17.5); Mean Corpuscular Hemoglobin 30.2 pg (28.0-32.0); Mean Corpuscular Hgb Conc. 33.5 g/dL (32.0-36.0); Red Blood Cells 4.41 10^6/uL (4.5-5.90); Red Cell Distribution Width 13.2 % (11.8-14.3); White Blood Cell 20.6 10^3/uL (4.4-10.8)
[2021-10-04 04:39] LABS: Potassium 4.4 mmol/L (3.5-5.1)
[2021-10-04 04:44] LABS: Mean Corpuscular Volume 90.2 fL (80.0-100.0)
[2021-10-04] MEDS: PHENYLEPHRINE IV 250 ML IV SCH ×3 (04:44→21:45)
[2021-10-04 04:45] LABS: Albumin 1.6 g/dL (3.4-5.0); BUN/Creatinine Ratio 20.2; Calcium 8.6 mg/dL (8.5-10.1); Magnesium 2.6 mg/dL (1.6-2.6)
[2021-10-04 04:49] LABS: Bilirubin, Total 0.2 mg/dL (0.2-1.0); Phosphorus 2.6 mg/dL (2.5-4.90)
[2021-10-04 04:55] LABS: Basophils % (manual) 0 (0.0-2.0); Blast Cells 0; Eosinophils % (manual) 0 (0-7); Metamyelocytes % 0; Promyelocytes % 0; Reactive Lymphocytes 0
[2021-10-04] MEDS: fentaNYL Drip 2500mCg/250mlNS 250 ML IV SCH ×2 (05:18→16:55)
[2021-10-04] MEDS: PROPOFOL 100 ML IV SCH ×2 (05:19→15:48)
[2021-10-04] MEDS: LINEZOLID 600MG/300ML 300 ML IV SCH ×3 (05:23→21:02)
[2021-10-04] MEDS: BUDESONIDE (INHALATION) 0.5 MG/2 ML NEB NEB SCH ×2 (06:11→22:38)
[2021-10-04] MEDS: ALBUTEROL SULF 2.5 MG/0.5ML(0.5%) NEB SOLN NEB PRN ×2 (06:11→22:38)
[2021-10-04 06:53] LABS: Band Neutrophils % (manual) 3; Lymphocytes % (manual) 8 (10.0-50.0); Monocytes % (manual) 3 (0-12); Myelocytes % 3
[2021-10-04] MEDS: SODIUM CHLORIDE 0.9% 1,000 ML IV SCH ×2 (07:29→23:26)
[2021-10-04] MEDS: DOCUSATE ORAL LIQUID 100 MG/10 ML UD GT SCH ×2 (09:51→21:44)
[2021-10-04] MEDS: HYDROCORTISONE SOD SUCC 100 MG/2ML INJ VIAL IV SCH ×2 (09:51→21:44)
[2021-10-04] MEDS: CHOLECALCIFEROL (VITD3) 2,000 UNIT CAP/TAB PO SCH (09:52)
[2021-10-04] MEDS: ENOXAPARIN SOD 40 MG/0.4 ML SYRINGE SC SCH ×2 (09:52→21:44)
[2021-10-04] MEDS: ASCORBIC ACID 1,000 MG TAB PO SCH (09:52)
[2021-10-04] MEDS: FAMOTIDINE 20 MG TAB PO SCH (09:52)
[2021-10-04] MEDS: NOREPINEPHRINE 8 MG/250ML KIT 250 ML IV SCH (15:50)
[2021-10-04] MEDS ORDERED: TPN PER PHARMACY IV NR ×6 (20:00)
[2021-10-05] VITALS (97 sets, daily range): BP systolic 87–111; BP diastolic 49–96
[2021-10-05] MEDS ORDERED: dilTIAZem 25 MG/5 ML VIAL IV ONE (01:30)
[2021-10-05] MEDS: MEROPENEM 1GM IVPB 100 ML IV SCH ×2 (02:27→15:44)
[2021-10-05 04:19] LABS: Hematocrit 37.7 % (41.0-53.0); Hemoglobin 12.5 g/dL (13.5-17.5); Mean Corpuscular Hemoglobin 29.9 pg (28.0-32.0); Mean Corpuscular Hgb Conc. 33.1 g/dL (32.0-36.0); Mean Corpuscular Volume 90.5 fL (80.0-100.0); Red Blood Cells 4.17 10^6/uL (4.5-5.90); Red Cell Distribution Width 13.4 % (11.8-14.3)
[2021-10-05 04:35] LABS: Basophils % (manual) 0 (0.0-2.0); Blast Cells 0; Eosinophils % (manual) 0 (0-7); Metamyelocytes % 0; Myelocytes % 0; Promyelocytes % 0; Reactive Lymphocytes 0
[2021-10-05 04:37] LABS: Potassium 3.9 mmol/L (3.5-5.1)
[2021-10-05 04:42] LABS: Albumin 1.5 g/dL (3.4-5.0); Calcium 8.4 mg/dL (8.5-10.1); Magnesium 2.2 mg/dL (1.6-2.6)
[2021-10-05 04:45] LABS: Bilirubin, Total 0.2 mg/dL (0.2-1.0); Phosphorus 3.1 mg/dL (2.5-4.90); Total Protein 5.8 g/dL (6.4-8.2)
[2021-10-05 04:51] LABS: Band Neutrophils % (manual) 3; Lymphocytes % (manual) 3 (10.0-50.0); Monocytes % (manual) 5 (0-12)
[2021-10-05] MEDS: InsuLIN REG 1unit/0.01ml Soln (100units/ml) SC SCH ×4 (05:29→23:42)
[2021-10-05] MEDS: ACCU-CHEK COMFORT CURVE STRIP VI SCH ×4 (05:49→23:42)
[2021-10-05] MEDS: PHENYLEPHRINE IV 250 ML IV SCH ×3 (05:51→22:08)
[2021-10-05] MEDS: BUDESONIDE (INHALATION) 0.5 MG/2 ML NEB NEB SCH ×2 (07:11→22:32)
[2021-10-05] MEDS: ALBUTEROL SULF 2.5 MG/0.5ML(0.5%) NEB SOLN NEB PRN ×2 (07:11→22:32)
[2021-10-05] MEDS: HYDROCORTISONE SOD SUCC 100 MG/2ML INJ VIAL IV SCH ×2 (09:43→22:05)
[2021-10-05] MEDS: DOCUSATE ORAL LIQUID 100 MG/10 ML UD GT SCH ×2 (09:43→22:00)
[2021-10-05] MEDS: ASCORBIC ACID 1,000 MG TAB PO SCH (09:44)
[2021-10-05] MEDS: CHOLECALCIFEROL (VITD3) 2,000 UNIT CAP/TAB PO SCH (09:44)
[2021-10-05] MEDS: ENOXAPARIN SOD 40 MG/0.4 ML SYRINGE SC SCH ×2 (09:44→22:05)
[2021-10-05] MEDS: FAMOTIDINE 20 MG TAB PO SCH (09:44)
[2021-10-05] MEDS: MIDAZOLAM DRIP 50 mg/50mL 50 ML IV SCH ×2 (09:45→18:06)
[2021-10-05] MEDS ORDERED: FLUCONAZOLE 200MG/100ML 100 ML IV ONE (13:00)
[2021-10-05] MEDS ORDERED: PANTOPRAZOLE 40 MG/10 ML VIAL INJ IV ONE (13:15)
[2021-10-05] MEDS: PROPOFOL 100 ML IV SCH (13:50)
[2021-10-05] MEDS: SODIUM BICARB 50ML SYR 100 ML in SOD CHL 0.45% 1,000 ML IV SCH (17:06)
[2021-10-05] MEDS: NOREPINEPHRINE 8 MG/250ML KIT 250 ML IV SCH (17:13)
[2021-10-05] MEDS: fentaNYL Drip 2500mCg/250mlNS 250 ML IV SCH (17:13)
[2021-10-05] MEDS: LINEZOLID 600MG/300ML 300 ML IV SCH (17:51)
[2021-10-05] MEDS: TPN PER PHARMACY IV NR ×7 (20:40)
[2021-10-06] VITALS (105 sets, daily range): BP systolic 83–119; BP diastolic 47–71
[2021-10-06] MEDS: MEROPENEM 1GM IVPB 100 ML IV SCH ×2 (01:05→13:18)
[2021-10-06 05:05] LABS: Albumin 1.5 g/dL (3.4-5.0); Calcium 7.7 mg/dL (8.5-10.1); Magnesium 2.4 mg/dL (1.6-2.6); Potassium 4.7 mmol/L (3.5-5.1)
[2021-10-06 05:09] LABS: BUN/Creatinine Ratio 28.1; Bilirubin, Total 0.3 mg/dL (0.2-1.0); Phosphorus 4.1 mg/dL (2.5-4.90); Total Protein 5.7 g/dL (6.4-8.2)
[2021-10-06] MEDS: LINEZOLID 600MG/300ML 300 ML IV SCH ×2 (05:17→18:26)
[2021-10-06] MEDS: SODIUM BICARB 50ML SYR 100 ML in SOD CHL 0.45% 1,000 ML IV SCH ×2 (05:18→07:24)
[2021-10-06] MEDS: InsuLIN REG 1unit/0.01ml Soln (100units/ml) SC SCH ×3 (05:18→18:27)
[2021-10-06] MEDS: ACCU-CHEK COMFORT CURVE STRIP VI SCH ×3 (05:18→18:27)
[2021-10-06] MEDS: PHENYLEPHRINE IV 250 ML IV SCH ×4 (06:20→18:52)
[2021-10-06] MEDS: ALBUTEROL SULF 2.5 MG/0.5ML(0.5%) NEB SOLN NEB PRN ×2 (06:37→21:55)
[2021-10-06] MEDS: BUDESONIDE (INHALATION) 0.5 MG/2 ML NEB NEB SCH ×2 (06:37→21:55)
[2021-10-06] MEDS: PROPOFOL 100 ML IV SCH ×2 (07:25→14:57)
[2021-10-06 08:55] LABS: Basophils # (auto) 0 10 ^3/uL (0-0.2); Basophils % (auto) 0.1 % (0.0-2.0); Eosinophils # (auto) 0 10 ^3/uL (0-0.8); Hematocrit 36.3 % (41.0-53.0); Hemoglobin 11.9 g/dL (13.5-17.5); Lymphocytes % (auto) 4.2 % (10.0-50.0); Mean Corpuscular Hemoglobin 30.2 pg (28.0-32.0); Mean Corpuscular Hgb Conc. 32.8 g/dL (32.0-36.0); Mean Corpuscular Volume 92.2 fL (80.0-100.0); Monocytes # (auto) 1.9 10 ^3/uL (0-1.3); Monocytes % (auto) 7.8 % (0.0-12.0); Neutrophils # (auto) 21.4 10 ^3/uL (1.6-8.6); Neutrophils % (auto) 87.9 % (37.0-80.0); Nucleated Red Blood Cells % 0.2 %; Red Blood Cells 3.94 10^6/uL (4.5-5.90); White Blood Cell 24.3 10^3/uL (4.4-10.8)
[2021-10-06] MEDS: CHOLECALCIFEROL (VITD3) 2,000 UNIT CAP/TAB PO SCH (09:29)
[2021-10-06] MEDS: ENOXAPARIN SOD 40 MG/0.4 ML SYRINGE SC SCH ×2 (09:29→21:29)
[2021-10-06] MEDS: HYDROCORTISONE SOD SUCC 100 MG/2ML INJ VIAL IV SCH ×2 (09:29→21:29)
[2021-10-06] MEDS: PANTOPRAZOLE 40 MG/10 ML VIAL INJ IV SCH (09:29)
[2021-10-06] MEDS: ASCORBIC ACID 1,000 MG TAB PO SCH (09:30)
[2021-10-06] MEDS: FLUCONAZOLE 200MG/100ML 100 ML IV SCH (09:30)
[2021-10-06] MEDS: DOCUSATE ORAL LIQUID 100 MG/10 ML UD GT SCH ×2 (09:30→21:24)
[2021-10-06] MEDS: MIDAZOLAM DRIP 50 mg/50mL 50 ML IV SCH ×2 (11:03→17:22)
[2021-10-06] MEDS: NOREPINEPHRINE 8 MG/250ML KIT 250 ML IV SCH ×2 (13:15→18:52)
[2021-10-06] MEDS: fentaNYL Drip 2500mCg/250mlNS 250 ML IV SCH (14:56)
[2021-10-06] MEDS ORDERED: AMIODARONE HCL 150 MG in D5W 5% 100 ML IV ONE (16:00)
[2021-10-06] MEDS ORDERED: AMIODARONE 450mg/250ml AE 250 ML IV SCH (16:15)
[2021-10-06] MEDS: dilTIAZem 125mg/125ml BAG KIT 125 ML IV SCH (17:00)
[2021-10-06] MEDS ORDERED: DIGOXIN (250MCG/ML) 2 ML AMPULE IV ONE (17:00)
[2021-10-06] MEDS ORDERED: dilTIAZem 25 MG/5 ML VIAL IV ONE (17:00)
[2021-10-06] MEDS: TPN PER PHARMACY IV NR ×7 (19:56)
[2021-10-06] MEDS ORDERED: TPN PER PHARMACY IV NR ×8 (20:00)
[2021-10-06] MEDS: AMIODARONE 450mg/250ml AE 250 ML IV SCH (21:29)
[2021-10-07] VITALS (93 sets, daily range): BP systolic 75–98; BP diastolic 42–59
[2021-10-07] MEDS: InsuLIN REG 1unit/0.01ml Soln (100units/ml) SC SCH ×4 (00:07→17:47)
[2021-10-07] MEDS: ACCU-CHEK COMFORT CURVE STRIP VI SCH ×4 (00:08→17:47)
[2021-10-07] MEDS: MEROPENEM 1GM IVPB 100 ML IV SCH ×2 (01:10→14:42)
[2021-10-07 04:28] LABS: Hematocrit 35.7 % (41.0-53.0); Hemoglobin 11.7 g/dL (13.5-17.5); Mean Corpuscular Hemoglobin 30.5 pg (28.0-32.0); Mean Corpuscular Hgb Conc. 32.7 g/dL (32.0-36.0); Red Blood Cells 3.83 10^6/uL (4.5-5.90); Red Cell Distribution Width 13.9 % (11.8-14.3); White Blood Cell 25.4 10^3/uL (4.4-10.8)
[2021-10-07 04:47] LABS: Albumin 1.4 g/dL (3.4-5.0); Magnesium 2.2 mg/dL (1.6-2.6); Potassium 4.7 mmol/L (3.5-5.1)
[2021-10-07 04:53] LABS: Bilirubin, Total 0.3 mg/dL (0.2-1.0); Phosphorus 4.8 mg/dL (2.5-4.90); Pre Albumin 16.4 mg/dL (20.0-40.0); Total Protein 5.7 g/dL (6.4-8.2)
[2021-10-07 04:55] LABS: Basophils % (manual) 0 (0.0-2.0); Blast Cells 0; Eosinophils % (manual) 0 (0-7); Myelocytes % 0; Promyelocytes % 0; Reactive Lymphocytes 0
[2021-10-07] MEDS: LINEZOLID 600MG/300ML 300 ML IV SCH ×2 (05:10→17:46)
[2021-10-07] MEDS: ALBUTEROL SULF 2.5 MG/0.5ML(0.5%) NEB SOLN NEB PRN (06:07)
[2021-10-07] MEDS: BUDESONIDE (INHALATION) 0.5 MG/2 ML NEB NEB SCH (06:07)
[2021-10-07] MEDS: NOREPINEPHRINE 8 MG/250ML KIT 250 ML IV SCH (07:29)
[2021-10-07] MEDS: PHENYLEPHRINE IV 250 ML IV SCH (07:29)
[2021-10-07] MEDS: MIDAZOLAM DRIP 50 mg/50mL 50 ML IV SCH ×2 (07:30→12:42)
[2021-10-07] MEDS ORDERED: NOREPINEPHRINE BITARTRATE 32 MG in SODIUM CHL 0.9% 218 ML IV SCH (07:45)
[2021-10-07 07:57] LABS: Band Neutrophils % (manual) 2; Lymphocytes % (manual) 2 (10.0-50.0); Metamyelocytes % 1; Monocytes % (manual) 6 (0-12)
[2021-10-07] MEDS ORDERED: DIGOXIN (250MCG/ML) 2 ML AMPULE IV SCH (10:00)
[2021-10-07] MEDS ORDERED: SODIUM CHLORIDE 0.9% 500 ML IV ONE (10:30)
[2021-10-07] MEDS ORDERED: ALBUMIN 25% 100 ML IV ONE (10:30)
[2021-10-07] MEDS: CHOLECALCIFEROL (VITD3) 2,000 UNIT CAP/TAB PO SCH (10:34)
[2021-10-07] MEDS: PANTOPRAZOLE 40 MG/10 ML VIAL INJ IV SCH (10:34)
[2021-10-07] MEDS: ASCORBIC ACID 1,000 MG TAB PO SCH (10:34)
[2021-10-07] MEDS: HYDROCORTISONE SOD SUCC 100 MG/2ML INJ VIAL IV SCH ×2 (10:34→21:48)
[2021-10-07] MEDS: ENOXAPARIN SOD 40 MG/0.4 ML SYRINGE SC SCH ×2 (10:35→20:59)
[2021-10-07] MEDS: DOCUSATE ORAL LIQUID 100 MG/10 ML UD GT SCH ×2 (10:35→20:59)
[2021-10-07] MEDS: FLUCONAZOLE 200MG/100ML 100 ML IV SCH (10:35)
[2021-10-07] MEDS: SODIUM BICARB 50ML SYR 100 ML in SOD CHL 0.45% 1,000 ML IV SCH (10:36)
[2021-10-07] MEDS: PHENYLEPHRINE INJ 80 MG in SODIUM CHL 0.9% 242 ML IV SCH ×2 (10:36→16:05)
[2021-10-07] MEDS ORDERED: SODIUM BICARBONATE 8.4 % INJ 50ML VIAL IV ONE (11:00)
[2021-10-07] MEDS ORDERED: VASOPRESSIN 50 UNITS in D5W 5% 247.5 ML IV SCH (11:30)
[2021-10-07] MEDS: fentaNYL Drip 2500mCg/250mlNS 250 ML IV SCH (12:37)
[2021-10-07] MEDS: AMIODARONE 450mg/250ml AE 250 ML IV SCH (12:40)
[2021-10-07] MEDS: PROPOFOL 100 ML IV SCH (12:43)
[2021-10-07] MEDS ORDERED: FUROSEMIDE 100 MG/10ML VIAL IV ONE (14:00)
[2021-10-07] MEDS: dilTIAZem 125mg/125ml BAG KIT 125 ML IV SCH (17:00)
[2021-10-07] MEDS ORDERED: TPN PER PHARMACY IV NR ×6 (20:00)
[2021-10-08] MEDS ORDERED: DIGOXIN (250MCG/ML) 2 ML AMPULE IV SCH (10:00)
== END 2021-10-08 01:30 | DRG 870 ==
LOC: ER 13:01 → EDBD 13:01 → TELE 16:47 → TELE-EAST 18:43 → ICU WEST 10-02 07:17
PROVIDERS: ADMIT Hospitalist; ATTEND Internal Medicine
PROC: 5A09357 Assistance with Respiratory Ventilation, Less than 24 Consecutive Hours, Continuous Positive Airway Pressure (ICD-10-PCS; 2021-09-22)
PROC: XW033E5 Introduction of Remdesivir Anti-infective into Peripheral Vein, Percutaneous Approach, New Technology Group 5 (ICD-10-PCS; 2021-09-22)
PROC: 5A09357 Assistance with Respiratory Ventilation, Less than 24 Consecutive Hours, Continuous Positive Airway Pressure (ICD-10-PCS; 2021-09-25)
PROC: 5A1955Z Respiratory Ventilation, Greater than 96 Consecutive Hours (ICD-10-PCS; principal; 2021-10-02)
PROC: 0BH17EZ Insertion of Endotracheal Airway into Trachea, Via Natural or Artificial Opening (ICD-10-PCS; 2021-10-02)
PROC: 06HY33Z Insertion of Infusion Device into Lower Vein, Percutaneous Approach (ICD-10-PCS; 2021-10-02)
PROC: 0W9930Z Drainage of Right Pleural Cavity with Drainage Device, Percutaneous Approach (ICD-10-PCS; 2021-10-02)
DX: A41.89 Other specified sepsis (principal); U07.1 COVID-19; J12.82 Pneumonia due to coronavirus disease 2019; J96.01 Acute respiratory failure with hypoxia; I50.33 Acute on chronic diastolic (congestive) heart failure; N17.0 Acute kidney failure with tubular necrosis; R65.21 Severe sepsis with septic shock; J93.9 Pneumothorax, unspecified; E44.0 Moderate protein-calorie malnutrition; N39.0 Urinary tract infection, site not specified; Z66 Do not resuscitate; D89.839 Cytokine release syndrome, grade unspecified; I27.20 Pulmonary hypertension, unspecified; I11.0 Hypertensive heart disease with heart failure; I25.5 Ischemic cardiomyopathy; G47.33 Obstructive sleep apnea (adult) (pediatric); J98.2 Interstitial emphysema; K59.00 Constipation, unspecified; I25.10 Atherosclerotic heart disease of native coronary artery without angina pectoris; I48.91 Unspecified atrial fibrillation; B95.2 Enterococcus as the cause of diseases classified elsewhere; Z68.25 Body mass index [BMI] 25.0-25.9, adult; Z95.1 Presence of aortocoronary bypass graft; Z80.0 Family history of malignant neoplasm of digestive organs; Z83.3 Family history of diabetes mellitus
CPT/HCPCS: 36415; 36600; 71045; 71275; 80048; 80053; 80307; 81001; 82040; 82306; 82728; 82805; 82962; 83036; 83605; 83615; 83735; 83880; 84100; 84443; 84478; 84484; 84550; 85007; 85025; 85027; 85379; 85610; 85730; 86141; 87040; 87070; 87086; 87088; 87186; 87205; 87426; 93005; 93306; 94002; 94003; 94640; 94660; 96365; 96372; 96375; 97110; C9113; G0378; J0330; J1100; J1450; J1815; J1956; J2185; J2250; J2405; J2543; J2704; J3490; J7060; J7131; P9047